=== PATIENT | male | born 1980 | race Hispanic/Latino ===

== ENCOUNTER 2025-08-18 06:23 | Day surgery (SDC) | payer OTHER ==
[~2025-08-18] VITALS: Ht 167.6 cm; Wt 79.7 kg
[~2025-08-18 06:23] MED LIST: AMLO1TAB24 PO; BUPR15TASR PO
[2025-08-18] MEDS ORDERED: LR 1,000 ML IV SCH (06:45)
[2025-08-18] MEDS ORDERED: TRANEXAMIC ACID 100 MG/ML 10ML VIAL As Ordered ONE (06:58)
[2025-08-18] MEDS: MIDAZOLAM INJ 2 MG/2 ML VIAL IV PRN (07:27)
[2025-08-18] MEDS ORDERED: dexAMETHasone 4 MG/ML 1 ML VIAL As Ordered ONE (07:31)
[2025-08-18] MEDS ORDERED: dexmedeTOMIDine (4 MCG/ML) 200 MCG/50 ML BTL As Ordered ONE (07:31)
[2025-08-18] MEDS: LIDOCAINE 1% SDV 5 ML VIAL PN ONE (07:31)
[2025-08-18] MEDS: EPINEPHrine INJ 1 MG/ML 1ML AMP PN ONE (07:31)
[2025-08-18] MEDS ORDERED: LIDOCAINE 2% 100 MG/5 ML SDV (FOR ANES.) As Ordered ONE (07:31)
[2025-08-18] MEDS: dexAMETHasone 10 MG/1 ML VIAL PRES.FREE PN ONE (07:31)
[2025-08-18] MEDS ORDERED: ONDANSETRON 4MG/2ML VIAL As Ordered ONE (07:31)
[2025-08-18] MEDS ORDERED: ROCURONIUM BROMIDE 50MG/5ML VIAL As Ordered ONE (07:31)
[2025-08-18] MEDS: ROPIvacaine 0.5% 30ML VIAL PN ONE (07:31)
[2025-08-18] MEDS ORDERED: MIDAZOLAM INJ 2 MG/2 ML VIAL As Ordered ONE (07:32)
[2025-08-18] MEDS: ceFAZolin SOD 2 GM IV ONCE IV ONE (08:00)
[2025-08-18] MEDS: TRANEXAMIC ACID 100 MG/ML 10ML VIAL IV ONE (08:15)
[2025-08-18] MEDS ORDERED: KETOROLAC 30 MG/ML 1 ML VIAL As Ordered ONE (08:36)
[2025-08-18] MEDS ORDERED: ACETAMINOPHEN 1000MG/100ML IV BAG As Ordered ONE (08:36)
[2025-08-18] MEDS ORDERED: PHENYLephrine 500MCG 5ML (100MCG/ML) SYRINGE As Ordered ONE (08:36)
[2025-08-18] MEDS ORDERED: SUGAMMADEX SODIUM 500 MG/5 ML VIAL As Ordered ONE (08:36)
[2025-08-18] MEDS ORDERED: SEVOFLURANE INHAL SOLN 250 ML BTL As Ordered ONE (08:41)
[2025-08-18] MEDS: VANCOMYCIN 1000MG/20ML VIAL As Ordered ONE (08:44)
[2025-08-18] MEDS: EPINEPHrine 1 MG/ML INJ 30 ML MD-VIAL As Ordered ONE (08:44)
[2025-08-18] MEDS ORDERED: HYDROMORPHONE HCL 0.5 MG/0.5 ML SYRINGE IV PRN (09:15)
[2025-08-18] MEDS ORDERED: ONDANSETRON 4MG/2ML VIAL IV PRN (09:15)
[2025-08-18 10:25] VITALS: BP 126/69; TEMP 97; O2SAT 96
== END 2025-08-18 11:13 | disposition home or self-care (01) ==
LOC: M SDC 06:23
PROVIDERS: ATTEND Orthopaedic Surgery
DX: M75.21 Bicipital tendinitis, right shoulder (principal); M75.81 Other shoulder lesions, right shoulder; M75.41 Impingement syndrome of right shoulder; M65.911 Unspecified synovitis and tenosynovitis, right shoulder; M94.211 Chondromalacia, right shoulder
CPT/HCPCS: 23430; 29823; 93005; C1713; J0131; J0165; J0166; J0688; J1100; J1885; J2250; J2371; J2405; J2795; J3010; J3373